=== PATIENT | male | born 1935 | race African-American/Black ===

== ENCOUNTER 2019-04-03 20:28 | Inpatient (IN) | payer OTHER ==
[~2019-04-03] VITALS: Ht 165.1 cm; Wt 68.0 kg
[2019-04-03 20:33] VITALS: BP 95/61
[2019-04-03 20:59] LABS: BASOPHILS 0.7 % (0.0-2.0); EOSINOPHILS 0.4 % (0.0-3.0); HEMATOCRIT 38.5 % (42.0-52.0); HEMOGLOBIN 13.1 gm/dL (14.0-18.0); MCH 35.1 pg (26.0-34.0); MCHC 33.9 g/dL (28.0-37.0); MCV 103.6 fL (80.0-100.0); PLATELET COUNT 195 thou/uL (150-400); POLYS 78.9 % (36.0-66.0); RBC 3.72 mil/uL (4.50-6.00); RDW 12.7 % (10.5-14.5); WBC 7.7 thou/uL (4.0-11.0)
[2019-04-03 21:04] LABS: CALCIUM 8.9 mg/dL (8.5-10.1); POTASSIUM 3.9 mmol/L (3.5-5.1)
[2019-04-03 21:10] LABS: ALBUMIN 3.3 g/dL (3.4-5.0); TOTAL BILIRUBIN 0.3 mg/dL (<0.1-1.0); TOTAL PROTEIN 6.1 g/dL (6.4-8.2)
[2019-04-03 21:36] LABS: URINE BILIRUBIN NEGATIVE (Negative); URINE BLOOD NEGATIVE (Negative); URINE CLARITY CLEAR; URINE COLOR YELLOW; URINE GLUCOSE-RANDOM* NEGATIVE (Negative); URINE KETONES NEGATIVE (Negative); URINE LEUKOCYTES-REFLEX NEGATIVE (Negative); URINE NITRITE-REFLEX NEGATIVE (Negative); URINE PROTEIN (DIPSTICK) NEGATIVE (Negative); URINE SPECIFIC GRAVITY 1.015 (1.005-1.035); URINE UROBILINOGEN 0.2 E.U./dl (0.2-1.0)
[2019-04-03] MEDS ORDERED: ASA81BEC PO (22:48)
[2019-04-03] MEDS ORDERED: LIPITOR40 MG PO (22:49)
[2019-04-03] MEDS ORDERED: MELATONIN3 M1 PO (22:50)
[2019-04-03] MEDS ORDERED: LISINOPRIL2.5 MG PO (22:50)
[2019-04-03] MEDS ORDERED: OLANZAPINE5 M1 PO (22:51)
[2019-04-03] MEDS ORDERED: OLANZAPINE ODT5 MG PO (22:52)
[2019-04-03] MEDS ORDERED: PROTONIX40 M2 PO (22:52)
[2019-04-03] MEDS ORDERED: VALPROIC ACID250 MG PO (22:53)
[2019-04-03 23:22] VITALS: BP 99/60
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
[2019-04-04 09:02] VITALS: BP 132/74
[2019-04-04 10:11] VITALS: BP 132/74
[2019-04-04 19:17] VITALS: BP 105/57
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
[2019-04-05 00:05] LABS: GLYCOHEMOGLOBIN (HGB A1C) 5.2 % (4.8-5.6)
[2019-04-05 00:31] VITALS: BP 105/57
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
--- NOTE | 2019-04-05 08:00 | NUR ---
SW student completed the intake with assistance with translation from community midwife. Pt has a son Wali who has not returned our several attempts to contact him. Pt lives at [facility]. It is expected he will return there. Pt is on a 96 hour hold because DPOA has not available.
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
[2019-04-05 08:54] VITALS: BP 129/52
--- NOTE | 2019-04-05 13:56 | NUR ---
LATE NOTE FROM YESTERDAY: 04-04-2019 THE PATIENT IS ALERT AND ORIENTED TO SELF. HE SPEAKS SERBIAN AND DOESNT UNDERSTAND CHINESE. THE PATIENT WAS INTERPRETED BEING CONFUSED AND WOULD EXPRESSED SUBJECTS THAT WAS NOT RELATED TO THE CONVERSATIONS. THE PATIENT WAS WANDERING AROUND THE UNIT GOING INTO OTHER PATIENT'S ROOMS FALLING ASLEEP IN THEIR BEDS. HE WAS HESITATE AND DIFFICULT TO REMOVE OUT OF OTHER PATIENT'S BEDS AND ROOMS. HE WAS TAKEN TO HIS ROOM FOR HIM TO LYE DOWN AND REST BUT HE WOULD NOT STAY IN HIS ROOM. HE IS AMBULATORY AND HAS BATHROOM PRIVILEGES. HE IS INDEPENDENT FOR ADL'S BUT NEEDS ASSIST WHEN HE NEEDS REDIRECTING. HE IS RESTLESS BUT COMPLIANT WITH MEDICATIONS.
--- NOTE | 2019-04-05 16:07 | NUR ---
HAS HAD EPISODES OF MILD AGITATION,IRRITABILITY THROUGHOUT SHIFT-PAPUA [place] SPEAKING SO WILL APPROACH NURSING STATION ANGRY TENSE FACIAL EXPRESSION AND RAISED VOICE WITH VARIOUS CONCERNS AND COMPLAINTS IE UPSET D/T NOT GETTING 3 SUGAR PACKETS FOR COFFEE-LATER IN SHIFT WAS MILDLY AGITATED BECAUSE HE NEEDED MONEY TO PAY FOR HIS COFFEE BUT WAS ABLE TO BE REASSURED AND REDIRECTED EASILY. ORIENTED TO NAME ONLY-BELIEVES HE IS IN "A BIG HOUSE" DENIES SI/SH/HI-WAS SHOWN TO BATHROOM WHEN STATED HE NEEDED TO GO-APPEARS TO BE CONTINENT-FEEDING SELF. GAIT IS STEADY WITHOUT ASSISITVE DEVICES-WILL WANDER IN HALLWAYS BUT NOT OBSERVED ENTERING PEERS ROOMS OR BEING INTRUSIVE-WILL ASK ABOUT LEAVING TO "GET MONEY" BUT HAS NOT BEEN OBSERVED AT EXIT [facility].
--- NOTE | 2019-04-05 16:08 | NUR ---
SMOOTH team followed up with [facility] and spoke with Aury who said pt is not allowed to come back. SMOOTH asked Aury if a 30 day notice was given. She intially said she had, and then said she had not but has sent correspondence to his family. She said she notified [facility] staff that pt will need assistance in finding another place to stay because he cannot come back there. SMOOTH asked if Aury could email her something stating that. She said she would via admissions team. SMOOTH team will continue to follow pt during his stay.
[2019-04-05 20:05] VITALS: BP 100/52
--- NOTE | 2019-04-05 23:31 | NUR ---
Care assumed of patient at 1915: Patient alert and oriented to person only. Patient confused and forgetful. Patient nauruan speaking. Able to communicate with nurse with nauruan known. Patient denies pain or discomfort. Patient impulsive and wandering/pacing. Patient requiring re-direction on staying out of other patient rooms. Patient trying to open doors that are locked. Becomes agitated and irritable while being re-directed. Patient incontinent of bladder. Compliant with susan care and linen change. Patient pushing around furniture and attempting to lay down table and chairs. Frequent re-direction required for safety. Patient denies SI/HI/AH/VH. No s/s of delusional or paranoia behaviors. Patient received PRN Thorazine and Olanzapine at bedtime for agitation and insomnia. Patient took HS medication crushed without difficulty. Ate 50% HS snack. Patient recently retired to bed and is currently resting quietly.
[2019-04-06 09:21] VITALS: BP 100/52
[2019-04-06 11:39] VITALS: BP 120/73
--- NOTE | 2019-04-06 14:00 | NUR ---
THE PATIENT HAS BEEN WANDERING AROUND THE [place] MOST OF THE MORNING GOING IN AND OUT OF PATIENT'S ROOMS, GOING INTO CAABINETS TAKING OUT ITEMS. THE PATIENT WAS REDIRECTED SEVERAL TIMES BUT NO AVIAL. THE PATIENT SPEAKS ONLY SENEGALESE. WHEN HE HAD TAKEN A HAZARDOUS IRON MINER BLASTING OUT OF A CABINET HE WOULD NOT GIVE IT TO STAFF. THE PATIENT BECAME COMBATIVE WHEN STAFF TRIED TO GET THE ITEM FROM HIM. HE BECAME DIFFICULT TO TO MANAGE. HE WAS ADMINISTERED ATIVAN 1.5 MG IM. HE HAS BEEN RESTING IN A CHAIR QUIET AND CALM. THE PATIENT HAS BATHROOM PRIVILEGES AND HE IS AMBULATORY. THE MACHINE LAY OUT WORKER EXPRESSED THAT HE IS VERY CONFUSED. HE HAS BEEN PUTTING WASH CLOTHS INSIDE HIS YELLOEW SOCKS AND OTHER CLOTHES IN HIS PANTS.
[2019-04-06 19:36] VITALS: BP 111/65
[2019-04-06 23:02] VITALS: BP 120/73
--- NOTE | 2019-04-07 03:01 | NUR ---
PT RESTLESS,PACING THE HALLS. UNABLE TO SIT STILL. DIFFICULT TO REDIRECT DUE TO LANGUAGE BARRIER. SPEAKS ONLY DANISH. INCREASINGLY IRRITABLE,AND REFUSING TO REMAIN IN BED. UNSTEADY ON FEET AND A FALL RISK. BECOMING COMBATIVE. GEODON 15MG IM TO LEFT BUTTOCK AT 0030. PT REMAINED RESTLESS AND INCONTINENT. FINALLY ABOUT 0200, PT SETTLED AND IS CURRENTLY RESTING QUIETLY. TOOK HS MEDS WITH PUDDING.
[2019-04-07 08:56] VITALS: BP 138/73
--- NOTE | 2019-04-07 12:04 | NUR ---
Called [facility] both yesterday and today. Left a detailed message for Aury, their social contact worker and never recieved a call back as of 1200 today. Called again today at 1200 and left a VM. Concern is that the facility is not going to be willing to accept patient back. Waiting to hear back from the facility
--- NOTE | 2019-04-07 15:04 | NUR ---
Slick has been upset today, he has been wanting to leave and trying all the doors to see if they are locked. He has a fast gait and walks slightly hunched over. He has tried to enter the nursing station a few times. Slick became angry when he was denied access to the nursing station. He threw a cup of gramham crackers and ice at the door of the nursing station.
--- NOTE | 2019-04-07 17:36 | NUR ---
THIS AM APON ASSESSMENT WAS COOPERATIVE- TOOK MEDS - OBSERVED PACING IN HALLWAYS. BECAME MORE INTRUSIVE WITH YELLING THROUGH OUT THE MORNING- STATES " I NEED A BARRAGAN TO THESE DOORS" VERBALIZED IN CAMBODIAN TO RN- RN SPOKE CAMBODIAN AND ORIENTED HIM TO PLACE. REDERECTED MULTIPLE TIMES TO DECREASE AGITATION - CONTINUED TO WANDER AND YELL- GEODON 15MG GIVEN IM AT 1349- AT 1530 STARTED YELLING AND BECOME AGITATED AFTER BEING ASKED TO NOT YELL- SLAMMED CUP WITH BALTA CRACKERS AND MILK TO FLOOR WHILE YELLING AND WALKED AWAY. ATIVAN 1.5 MG GIVEN IM PER MD ORDER. COOPERATIVE WITH ALLOWING IMS TO BE ADMINISTERED. APEARS TO BE RESTING QUIETLY IN ROOM AT THIS TIME.
[2019-04-07 19:56] VITALS: BP 136/70
--- NOTE | 2019-04-07 21:37 | NUR ---
Care assumed of patient at 1915: Patient pacing the halls at start of shift. Patient disoriented, confused, exit seeking. Patient attempting to crawl on the floors. Going through belongings in other peer rooms. Requiring constant re-direction. Patient provided HS medication whole with water without difficulty. Nurse administered Geodon IM PRN. Patient assisted to the bathroom and was not able urinate on the toilet. Patient attempted to play in the toilet water, required re-direction. Due to increased confusion and impulsive behaviors, patient required mod-max assist x2 for ADL completion. Patient continued to be restless, agitated, disrupting mileau. Yelling, attempting to move and carry furniture. Tesha, FLASH WELDING MACHINE OPERATOR notified of all medications administered over the last 24 hours and current behaviors. Order obtained for Ativan 1mg IM 1x dose. Medication administered. Patient was able to be assisted to bed with staff x2. Once in bed, patient had an incontinent episode of bladder. Arpita care provided and linens changed. Patient appears to be resting in bed at this time.
[2019-04-08 08:59] VITALS: BP 136/70
--- NOTE | 2019-04-08 09:21 | NUR ---
ASSUMED CARE AT 0700 THIS MORNING. PT. ASLEEP IN W/C AFTER BEING COMBATIVE WITH BROADCAST ENGINEER. HE RECEIVED AN IM OF HALDOL AND ATIVAN. HE WAS COOPERATIVE WITH TAKING MORNING MEDICATIONS, CRUSHED AND IN APPLESAUCE. HE ATE ABOUT 30% BREAKFAST BEFORE HE REUSED TO COOPERATE ANY LONGER WITH EATING. AT ABOUT 0900 WHEN HE STARTED WAKING UP, SLIDING OUT OF THE W/C. STAFF PLACED HIM BACK IN HIS W/C AND TOOK HIM TO HIS ROOM AND INTO BED. DR. ELIAS SAW PT. LUNGS CTA.
--- NOTE | 2019-04-08 11:43 | NUR ---
Spoke to RUTHY Magallon at [facility] - they know that they need to take the patient back and they will. Kimberly asked that our SW call their social service agency director with any outpatient reccomendations for a psychiatrist. Kimberly asked that if their social service agency director did not return call, to please call her at [phone]
--- NOTE | 2019-04-08 15:54 | NUR ---
SMOOTH received information that [facility] will be accepting pt back when he is ready for discharge. However, they need help with locating outpatient psych services for him. SMOOTH contacted [facility] and was told the lady who schedules adult psych appts is out for the day, however, she will call SW Thursday to schedule an appt. SMOOTH contacted [facility] and spoke to admissions who said they were unaware that pt was coming back. SMOOTH explained that her director spoke to Rajani, which admissions identified as the secondary social studies teacher, and she said he will be coming back. She provided updates to them about his psych appt and that she will be calling Thursday with an appt time and possibly a discharge date. SW team will continue to follow pt during his stay.
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
[2019-04-09 07:15] VITALS: BP 148/72
--- NOTE | 2019-04-09 12:40 | NUR ---
Has been up in recliner in the dayroom, where he can be monitored easier, he has dozed off and on, very restless, repositioned several times, he ate a small amount of breakfast with assist, he was not compliant with medications, he spit them all out, he has slept in the recliner and would not arouse for lunch, he mumbles and has struk out at times, will continue to monitor for behaviors and safety, spoke with Dr. Flor about depakote sprinkles instead of large tabs that do not crush well, orders changed.
--- NOTE | 2019-04-09 18:26 | NUR ---
PATIENT WOKE UP FOR SUPPER, TOOK A FEW BITES OF MEAL, AND STARTED SPITTING IT OUT AND THROWING THEM AT STAFF. HAD HALFCUP OF ICECREAM AND ONE APPLE SOURCE. PATIENT IS RESTLESS IN RECLINER. NO AGITATION OR AGGRESSIVE BEHAVIOR NOTED AT THIS TIME, WILL MONITOR FOR SAFETY.
[2019-04-09 19:53] VITALS: BP 99/67
[2019-04-09 21:53] VITALS: BP 99/67
--- NOTE | 2019-04-10 03:03 | NUR ---
PT RESTLESS. UP IN RECLINER BUT MOVING CONSTANTLY. MEDICATED WITH ZIPRASIDON 15MG IM AT 1930. ESCORTED TO BED, BUT REMAINED RESTLESS UNTIL ABOUT 2099. TOOK HS MEDS WITH APPLESAUCE. HAS BED SLEEPING WELL THROUGH THE NIGHT TO THISS POINT.
[2019-04-10 07:34] VITALS: BP 143/61
[2019-04-10 09:23] VITALS: BP 143/61
--- NOTE | 2019-04-10 09:33 | NUR ---
0655 Report received from overnight shift, patient did not eat much breakfast. Patient was sleepy during breakfast, patient took medication without incdence. Patient started yelling words we cannot understand, he was removed from the day room. Patient in fair near nurses station for ovbervation.
[2019-04-10 19:36] VITALS: BP 122/76
--- NOTE | 2019-04-10 23:14 | NUR ---
Care assumed of patient at 1915: Patient seated in recliner at start of shift. Patient compliant with nursing assessment. Denies pain or discomfort. Patient noted to become restless, attempting to lower self to floor to crawl. Staff noted patient had been incontinent of bladder. Patient escorted to his room by ambulating with max staff assist x2. Patient did attempt to hit, kick and bite staff while susan care was provided and brief changed. Patient then assisted to w/c with chair alarm and lap thaddeus for safety. Patient did attempt to slide himself out of w/c x2 but was assist to sitting back with max assist x2. Patient combative while re-positioning but was able to calm down when staff were not assisting him. Patient took HS medication crushed without difficulty. Patient ate approximately 10% HS snack with total assist then started to scream "no more". Patient started to appear tired and drowsy later in the evening. Patient assisted to bed with max assist x2. Patient was not combative while being transferred to bed and fell asleep without difficulty. Patient has been resting quietly since assisted to bed.
[2019-04-11 07:48] VITALS: BP 137/72
[2019-04-11 09:05] VITALS: BP 137/72
--- NOTE | 2019-04-11 10:01 | NUR ---
0700: report given and assumed care. Pt relaxed at the activity room and kinder sleepy. Breakfast served and consumed 95% though he never opened his eyes at all, but responds to questions.. Looks lathergic. Took medications this morning. Pt resting/sleeping at the activity room. Will continue to monitor.
--- NOTE | 2019-04-11 11:07 | NUR ---
SMOOTH contacted [facility] [place] to provide updates to their RUTHY Longoria about pt. She was unavailable. SMOOTH sent updates to their fax [phone]. SW team will continue to follow pt during his stay.
--- NOTE | 2019-04-11 15:23 | NUR ---
Awake and alert. Sitting on bed without s/o distress. States pain in knees/back 3-4. Ambulates with walker, steady gait. Breath sounds clear t/o, bilaterally equal. Color pink with brisk capillary refill and palpable peripheral pulses 2/4. Edema in l lower leg improved from 2 days ago.
--- NOTE | 2019-04-12 04:06 | NUR ---
1909-Report received from day shift and care assumed. Slick was restless, agitated at shift start, trying to get out of the wheelchair and walk on his own, which he cannot do without assist. He continued doing so which was unsafe behavior. He was non-redirectable for other activities to occupy his restlessness. He was given Geodon 15 mg. IM at 1929. He refused his HS medicines shouting and shaking his head No and refused an HS snack.At 2199 he remained very restless trying to get out of the wheelchair on his own, so the was called and an order for Ativan 1 mg. IM was given. He calmed some and was not aggressive with cares and redirections, thus it was effective, even though he remained awake for most of the night.
[2019-04-12 09:56] VITALS: BP 153/90
[2019-04-12 09:57] VITALS: BP 153/90
--- NOTE | 2019-04-12 12:11 | NUR ---
SMOOTH contacted Jessica with [facility]. She did not receive an answer. SMOOTH left a message. for her. SMOOTH again contacted Jessica. No answer. SMOOTH asked the switchboard receptionist if Jessica was in, and she said she is in meetings this morning. SMOOTH asked to speak with Swati. She was transferred to her line, and then the line went . SMOOTH called back to [facility] of main number, and was told Swati was not in for the day. The switchboard receptionist said that she will write down the message for Aury and ask her to call SMOOTH. SMOOTH team will continue to follow pt during his stay.
--- NOTE | 2019-04-12 16:05 | NUR ---
IN RECLINER IN DAYROOM WITH PEERS UPON INITIAL ASSESSMENT THIS AM-APPEARS SLIGHTLY DROWSY INITALLY BUT IS ROUSABLE TO VERBAL STIMULI AND FEEDS SELF BREAKFAST WITH ONLY SET UP REQUIRED. AT APPROX. RESTLESS AND ATTEMPTING TO STAND UP ON OWN OR YELLING OUT "POPPY-POPPY" -REPOSITIONED FOR COMFORT-TOILETED,FOOD AND FLUIDS OFFERED WITH CONTINUED RESTLESSNESS AND INCREASED AGITATION-BEGAN REMOVING CLOTHING AND STRIKING OUT AT STAFF WHEN ATTEMPTS MADE TO REDRESS HIM-INCREASE IN YELLING-TAKEN TO ROOM AND RN AT BEDSIDE UNTIL APPROX. 1215 WHEN GEODON 15MG GIVEN IM IN LVG. REMAINED RESTLESS,DISROBING AND YELLING UNTIL APPROX 1300 WHEN PLACED IN BED BY 2 STAFF-INCONTINENT OF URINE-BRIEF CHANGED AND PERINEAL CARE PROVIDED
--- NOTE | 2019-04-12 16:24 | NUR ---
SMOOTH received a call from Jessica with [facility]. She stated that the facility can take pt back on Sunday 04/15. 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 SMOOTH team will continue to follow pt during his stay.
[2019-04-12 20:38] VITALS: BP 118/70
--- NOTE | 2019-04-13 01:08 | NUR ---
ASSESSMENT: PT REMAIN ALERT AND ORIENT TIMES ONE. KOREAN SPEAKING ONLY, DOES RESPOND TO NAME BUT DOES NOT SEEM TO FOLLOW SIMPLE COMMANDS. WAS SITTING IN THE DAYROOM AT THE CHANGE OF SHIFT UNTIL 0030 WHEN HE WAS PUT IN BED. PT DID TAKE ALL OF HS MEDS WITHOUT DIFFICULTY. INCONTINENT TO BLADDER WHILE SITTING IN THE RECLINER IN THE DAY ROOM. DID NOT APPEAR TO BE IN PAIN. NO PRN GEODON WAS GIVEN. VSS, AFEBRILE. TOLERATING PO INTAKE. SLOW PROGRESS TOWARDS DC GOALS, WILL CONTINUE TO MONITOR.
[2019-04-13 07:55] VITALS: BP 134/57
--- NOTE | 2019-04-13 11:01 | NUR ---
Nutrition: Pt admitted to [facility] unit with dementia, behaviorial disturbances. Seen due to LOS. Chart reviewed. Pt sami speaking. Attempted interview with RN Rafaela (sami speaking) however pt was not able to provide information requested. No weight taken since admit, RD has requested RN to obtain. Meal documentation over admit refusal to 100% however past 24 hrs pt eating 75-100% of all meals. BMI 25, high end normal. Offer ensure once daily due to prior inadequate meal intakes. Planned D/C 04/15. Consider low nutrition risk.
--- NOTE | 2019-04-13 11:45 | NUR ---
SMOOTH contacted [facility] and was told since pt has not had services there yet, he will need to walk into behavioral health department to do an intake. M-F [phone]. SMOOTH relayed this information to Aury with [facility] [place]. She said she will check and make sure transportation has been set up for pt @9am on 04/15. SMOOTH team will continue to follow pt during his stay.
--- NOTE | 2019-04-13 12:02 | NUR ---
SW attempted to notify DPOA of pt discharging. Phone number is disconnected. SW team will continue to follow pt during his stay.
--- NOTE | 2019-04-13 13:07 | NUR ---
Pt is often fully asleep or yelling out and disrobing in the day room. Pt continues to be limited in participation due to language barrier.
--- NOTE | 2019-04-13 13:59 | NUR ---
SMOOTH completed a EX716-E Level I screening per request from Jessica with [facility] . SMOOTH faxed this document to [facility] along with updates. SW team will continue to follow pt during his stay.
--- NOTE | 2019-04-13 15:23 | NUR ---
ASSUMED CARE OF PT AT APPROX 0700. PT IS ALERT, ORIENTED TO SELF. DENIES PAIN AND SOA. EVEN NON LABORED BREATHING. ASSESSMENT CHARTED. PT APPROPRIATE BEHAVIOR TODA BESIDES REFUSED MEDS AT NOON BUT THEN DID TAKE THEM AFTER. FALL PRECAUTIONS IN PLACE AND LAP NINI IN PLACE WELL TO HELP PREVENT INJUSR AND FALLS. NAD DURING SHIFT. WILL CONTINUE TO MONITOR.
[2019-04-13 19:41] VITALS: BP 107/50
--- NOTE | 2019-04-14 00:39 | NUR ---
ASSUMED CARE @ 19:15 ON 04/13/19, SEATED IN CHAIR WITH LAP NINI IN PLACE TO PREVENT FALLS AND INJURY. COOPERATED WITH ASSESSMENT, WILLINGLY TOOK MEDS CRUSHED IN APPLESAUCE, WITH THIN WATER. BECAME SLEEPY AND ALLOWED SELF TO BE TRANSFERRED TO BED @ 2300. SLEEPING AT THIS TIME. BED IN LOW POSITION, BED ALARM SET, WILL CONTINUE TO MONITOR Q 12 MINUTES FOR PATIENT SAFETY.
[2019-04-14 05:37] VITALS: BP 107/50
[2019-04-14 09:12] VITALS: BP 113/63
[2019-04-14 19:30] VITALS: BP 127/70
[2019-04-14 21:30] VITALS: BP 127/70
--- NOTE | 2019-04-14 23:08 | NUR ---
PATIENT HELPED TO BED AT 2215. PATIENT HAD TAKEN HIS HS MEDS EARLIER IN [facility] WITHOUT INCIDENT. PATIENT WAS UP IN DINING ROOM IN AND LAPBUDDY UNTIL HE WENT TO BED. TOILETED PATIENT AND CHANGED INTO NIGHT CLOTHES. LOTIONED AND MASSAGED PATIENT'S LOWER LEGS AND FEET TILL HE FELL ASLEEP. BED ALARM ON. PATIENT ALARM WENT OFF 10 MINUTES LATER AND PATIENT WAS CRAWLING DOWN FROM BED ON THE FLOOR. I WENT TO GET HELP AND SOME GEODON. PATIENT CONTINUED TO CRAWL DOWN [place]. NO INJURIES. SECURITY CALLED TO HELP GET PATIENT BACK TO BED AND BE ON ALERT WHEN INJECTION GIVEN. GEODON 15MG IM GIVEN IN PATIENT'S RIGHT HIP. PATIENT POSITIONED COMFORTABLY IN BED WITH 3 SIDERAILS UP AND BED ALARM ON AND BED IN LOW POSITION. PATIENT APPEARS TO BE SLEEPING NOW.
[2019-04-15 08:00] VITALS: BP 129/58
[2019-04-15] MEDS ORDERED: DEPAKOTE SPRIN125 MG PO (08:56)
[2019-04-15] MEDS ORDERED: ZYPREXA 5 MG TAB5 M1 PO ×2 (08:56→08:57)
[2019-04-15] MEDS ORDERED: VITAMIN B-12500 MCG PO (08:57)
--- NOTE | 2019-04-15 09:13 | NUR ---
SMOOTH faxed D/C summery/ instructions to [facility] and added this to his packet. Reported to nurse that this was completed.
--- NOTE | 2019-04-15 11:32 | NUR ---
REPORT CALLED TO [facility] AND DC INSTRUCTIONS AND MEDS REVIEWED WITH STAFF AND WITH PATIENT ABLE- RX AND MEDICATIONS DOSING SCHEDULE SENT TO [facility] WITH ALL LABS AND MEDICAL SUMMARIES WELL PT BELONGOMGS. ESCORTED OFF UNIT AT APPROX 0915 WITH TRANSPORT STAFF FROM [facility]. IS ALERT/IN NO APPARENT DISTRESS AT TIME OF DC
--- NOTE | 2019-04-17 10:14 | D ---
[facility] [place] [address] DISCHARGE SUMMARY Name: JAIME GALVIN Room #: 517-A [facility] IN M.R.#: [id number] Admission: 04/03/19 Attend Phys: Stephen Flor DO Discharge: 04/15/19 Date of : 31 Report #: [id number] THIS REPORT FOR: //name// CC: Stephen Flor Ale Prabhakar DATE OF SERVICE: 04/15/2019 INPATIENT PSYCHIATRIC DISCHARGE SUMMARY ATTENDING PHYSICIAN: Stephen Flor DO. ENTRY LEVEL LAB TECHNICIAN AT THE TIME OF DISCHARGE: Antonio Macario MD DISCHARGE DIAGNOSES: 1. 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 2. Other comorbidities include hypertension, gait decline, likely due to #1. DISCHARGE PLAN: Discharged to [facility]. Psychiatric and medical care will be per the receiving facility. DIET: Regular with Ensure Enlive with lunch with supplementation. The patient will need 24-hour memory care at [facility]. DISCHARGE MEDICATIONS: Depakote Sprinkles 500 mg p.o. b.i.d., olanzapine 10 mg p.o. at bedtime, 5 mg p.o. at 1200. Cyanocobalamin 500 mcg p.o. daily for supplementation. Continue aspirin 81 mg p.o. daily for cardioprotection, atorvastatin 40 mg p.o. at bedtime for hyperlipidemia, melatonin 6 mg p.o. at bedtime for sleep and Protonix or pantoprazole 40 mg p.o. daily. Lisinopril was discontinued due to variable intake and concern for acute kidney injury. LABORATORY DATA: This admission, CBC within normal limits except on 04/03/2019 hemoglobin 13.1, hematocrit 38.5, white count 7.7, platelets 195,000. Chemistries, 04/03/2019, were grossly normal except glucose 204, BUN 26, albumin 3.3, total protein 6.1. Toxicology this admission, Depakote level was 78 on 04/13/2019. Urinalysis was negative. REASON FOR ADMISSION: As follows: The patient was sent over from [facility]. She was apparently aggressive towards the staff member. The patient is well known to me from prior admission 3 years ago at [facility]. He has no family support, no significant. HOSPITAL COURSE: The patient was admitted to Geriatric Psychiatry Unit. Depakote was titrated to appreciate blood level as indicated, also olanzapine [address] [address] DISCHARGE SUMMARY Name: JAIME GALVIN Room #: 517-A DIS IN M.R.#: [id number] Admission: 04/03/19 Attend Phys: Stephen Flor, Discharge: 04/15/19 Date of : 31 Report #: [id number] was antipsychotic of choice. I did reach out to [facility] and was able to review some of his past medication trials. Initially, [facility] said they could not take the patient back, but they agreed and thought that it is their work to take care of patients such as this. The patient is grossly disorganized in his speech and speaks Sri Lankan, so largely, indirect interview at discharge. VITAL SIGNS: On the day of discharge, temperature 36.7, pulse 50, respirations 20, BP 129/58, O2 sat 98%. MENTAL STATUS EXAMINATION: This is a well-developed, disheveled male, appearing his stated age. Attention limited. Concentration impaired. Speech increased rate. Thought process, difficult to follow. Some psychomotor agitation. No psychomotor retardation. Memory grossly impaired. Insight impaired. Judgment impaired. Fund of knowledge well below average. PROGNOSIS: For this patient is guarded to poor given his advanced dementia, age, and almost absent family support. <ELECTRONICALLY SIGNED> By: Stephen Flor DO 04/17/19 [id number] Stephen Flor DO /nt
== END 2019-04-15 12:35 | DRG 57 ==
LOC: ER 20:28 → SBH 23:00 → EROBS 23:00 → SBH 23:26
PROVIDERS: Nurse Practitioner; Physician Assistant; ADMIT Psychiatry & Neurology Psychiatry
DX: G30.9 Alzheimer's disease, unspecified (principal); F02.81 Dementia in other diseases classified elsewhere, unspecified severity, with behavioral disturbance; I10 Essential (primary) hypertension; K21.9 Gastro-esophageal reflux disease without esophagitis; E78.5 Hyperlipidemia, unspecified; I95.9 Hypotension, unspecified; Z91.81 History of falling; Z79.82 Long term (current) use of aspirin; Z79.899 Other long term (current) drug therapy; Z90.49 Acquired absence of other specified parts of digestive tract
CPT/HCPCS: 10880

== ENCOUNTER 2019-04-19 11:51 | Inpatient (IN) | payer OTHER ==
[~2019-04-19] VITALS: Ht 147.3 cm; Wt 59.0 kg
[~2019-04-19 11:51] MED LIST: ASA81BEC PO; DEPAKOTE SPRIN125 MG PO; LIPITOR40 MG PO; LISINOPRIL2.5 MG PO; MELATONIN3 M1 PO; OLANZAPINE ODT5 MG PO; OLANZAPINE5 M1 PO; PROTONIX40 M2 PO; VALPROIC ACID250 MG PO; VITAMIN B-12500 MCG PO; ZYPREXA 5 MG TAB5 M1 PO
[2019-04-19 11:52] VITALS: BP 119/68
[2019-04-19 12:12] LABS: ABSOLUTE NEUTROPHILS 10.8 thou/uL (1.4-8.2); BASOPHILS 0.2 % (0.0-2.0); EOSINOPHILS 0.1 % (0.0-3.0); HEMATOCRIT 45.4 % (42.0-52.0); HEMOGLOBIN 14.8 gm/dL (14.0-18.0); LYMPHOCYTES 5.2 % (24.0-44.0); MCHC 32.6 g/dL (28.0-37.0); MCV 104.3 fL (80.0-100.0); POLYS 88.5 % (36.0-66.0); RBC 4.35 mil/uL (4.50-6.00); RDW 12.9 % (10.5-14.5); WBC 12.2 thou/uL (4.0-11.0)
[2019-04-19 12:22] LABS: URINE BILIRUBIN NEGATIVE (Negative); URINE BLOOD NEGATIVE (Negative); URINE CLARITY CLEAR; URINE COLOR YELLOW; URINE GLUCOSE-RANDOM* NEGATIVE (Negative); URINE KETONES NEGATIVE (Negative); URINE LEUKOCYTES-REFLEX NEGATIVE (Negative); URINE NITRITE-REFLEX NEGATIVE (Negative); URINE PROTEIN (DIPSTICK) NEGATIVE (Negative); URINE SPECIFIC GRAVITY 1.015 (1.005-1.035); URINE UROBILINOGEN 0.2 E.U./dl (0.2-1.0)
[2019-04-19 12:25] LABS: CALCIUM 9.6 mg/dL (8.5-10.1); CREATININE 4.8 mg/dL (0.7-1.3); POTASSIUM 4.7 mmol/L (3.5-5.1)
[2019-04-19] MEDS ORDERED: ZESTRIL10 MG PO (12:30)
[2019-04-19 12:31] LABS: ALBUMIN 3.3 g/dL (3.4-5.0); TOTAL BILIRUBIN 0.8 mg/dL (<0.1-1.0); TOTAL PROTEIN 6.9 g/dL (6.4-8.2)
[2019-04-19] MEDS ORDERED: OLANZAPINE2.5 MG PO (12:31)
[2019-04-19] MEDS ORDERED: VALPROIC ACID250 MG PO (12:33)
[2019-04-19 13:22] LABS: LARGE PLATELETS RARE; PLATELET COUNT 180 thou/uL (150-400)
[2019-04-19 13:45] VITALS: BP 123/49
--- NOTE | 2019-04-19 13:52 | NUR ---
ATTEMPTED TO CALL SON. PHONE NUMBER ON FILE NOT WORKING
[2019-04-19 16:44] VITALS: BP 126/66
--- NOTE | 2019-04-19 19:25 | NUR ---
REceived pt from the ER, pt is lethargic and only alert to self. Only speaks nigerien and wound respond to his name. Refused to eat but did have half a cup of coffee with sugar. Does not resond to the wire rope sling maker line but would respond when spoken to in Welsh. Plan is for rehydration, informed Dr. hartmann of the medication in the med req, DR wants to hold off though orders for prn ativan in the system if needed. POC followed, no signs o0r verbalizations of distres have been noted. Endorsed to the night nurse.
--- NOTE | 2019-04-20 05:24 | NUR ---
Pt. had two doses of ivp ativan (see emar) for agitation. He has been observed smearing in his feces. When attempting to clean him up he would strike out at the staff and also kick. Pt. is confused and unable to use gem setter. He was also having urinary retention and Ellie STYLES called and notified with orders to insert grayson catheter. Pt. also very figidty and will not leave his gown on. Pt. also kicking his legs up over the siderails a few times during the shift. Ativan effective and he has been resting. Bed alarm is on.
[2019-04-20 05:28] LABS: MCH 35.5 pg (26.0-34.0); MCHC 33.3 g/dL (28.0-37.0); MCV 106.8 fL (80.0-100.0); RBC 3.65 mil/uL (4.50-6.00); RDW 13.3 % (10.5-14.5); WBC 9.5 thou/uL (4.0-11.0)
[2019-04-20 05:39] LABS: ALBUMIN 2.8 g/dL (3.4-5.0); CALCIUM 8.5 mg/dL (8.5-10.1); CREATININE 4.5 mg/dL (0.7-1.3); PHOSPHORUS 5.6 mg/dL (2.5-4.9); POTASSIUM 4.3 mmol/L (3.5-5.1)
[2019-04-20 07:55] VITALS: BP 125/54
[2019-04-20 11:39] LABS: URINE BILIRUBIN NEGATIVE (Negative); URINE BLOOD 2+ (Negative); URINE CLARITY CLEAR; URINE COLOR YELLOW; URINE GLUCOSE-RANDOM* NEGATIVE (Negative); URINE KETONES TRACE (Negative); URINE LEUKOCYTES 1+ (Negative); URINE NITRITE NEGATIVE (Negative); URINE PROTEIN (DIPSTICK) NEGATIVE (Negative); URINE SPECIFIC GRAVITY 1.015 (1.005-1.035); URINE UROBILINOGEN 0.2 E.U./dl (0.2-1.0)
[2019-04-20 11:57] LABS: BACTERIA 1-9 Few /HPF (None Seen); CASTS None Seen /LPF (None Seen); CRYSTALS None Seen /LPF (None Seen); SQUAMOUS None Seen /LPF (0-3); URINE RBC 0-2 Rare /HPF (0-2); URINE WBC 0-5 Rare /HPF (0-5)
--- NOTE | 2019-04-20 14:14 | NUR ---
Case opened to follow for dc planning. Pt is a ltc resident at [facility]. He is a readmission and was dc'd back to the [facility] on [facility]19 from [facility]. Pt was sent back to the hospital d/t aggressive behavior toward another resident;however he was admitted to medical floor due to ROSALINE, metabolic enceph r/t medications, and elev wbc. The pt has a hx of dementia and has only been at [facility] since January of this year (from [facility] The faclity staff report they have issued an Immediate DC notice and can not accept the pt for readmission. They have not been able to reach his son and only known contact Wali for a number of weeks. Both nursing and cm have attempted to contact Wali at [phone] and the number appears disconnected. Dir of CM notified of the facility refusal to accept the pt for readmission. They are having their socialworker send referrals to [facility] and [facility] for possible placement. Dc timeframe is uncertain. The pt is restless and confused at this time. Will ask for therapy evals and await the care team recommendations. Psych consult pending.
[2019-04-20 15:43] VITALS: BP 153/63
[2019-04-20 19:46] VITALS: BP 152/59
--- NOTE | 2019-04-20 19:52 | NUR ---
Assumed of care this am, pt is still very confused, would try to pull his grayson out and IV. Re-enforced tubings with coban. Pt refused to eat or drink. Pericare given twice, had a bm and would be caught fiddling with this if not caught early. Pt does not keep his gown or blankets on. Seen by Dr. Ortiz as well. UA send to the lab. POC followed, endorsed to the night nurse.
[2019-04-21 05:30] LABS: ALBUMIN 2.5 g/dL (3.4-5.0); CALCIUM 8.3 mg/dL (8.5-10.1); PHOSPHORUS 2.7 mg/dL (2.5-4.9); POTASSIUM 3.7 mmol/L (3.5-5.1)
[2019-04-21 05:41] LABS: CREATININE 0.8 mg/dL (0.7-1.3)
--- NOTE | 2019-04-21 06:00 | NUR ---
Pt. required a dose of ativan during the shift (see emar). He attempts to strike out at staff during cares. He also has been restless. Ativan was partially effecitve, but takes his gown off. Attempts to pull at his catheter and iv, but has been monitored closely by staff. Bed alarm is on.
[2019-04-21 07:49] VITALS: BP 120/61
[2019-04-21 14:29] VITALS: BP 159/72
--- NOTE | 2019-04-21 15:43 | NUR ---
ASSUMED CARE AROUND 0715. PT AWAKE DISORIENTED X4. FREQUENT VISUAL CHECK RENDERED. PT DOES NOT CHEW VERY WELL NOR PT'S INTERESTED IN EATING AT THIS TIME. DIET CHANGED TO PUREE FOR FEEDING AND BETTER NOURISHMENT. MULLER INTACT DRAINING DARK YELLOW URINE. NO S/S ACUTE DISTRESS NOTED OR REPORTED AT THIS TIME. WILL CONT TO MONITOR FOR ANY CHANGES IN CONDITION.
[2019-04-21 20:10] VITALS: BP 144/79
--- NOTE | 2019-04-22 02:59 | NUR ---
PATIENT AOX1 CONFUSED AND FORGETFUL. PATIENT SPITTED DEPAKOTE SPRINKERS. PATIENT HAD HIGH ANXIETY AND AGITATION. PATIENT WAS GETTING COMBATIVE WITH CARE PRN ATIVAN GIVEN PER DR. GUIDRY. PATIENT HAS A MULLER CATH CARE DONE. PATIENT IS VOIDING LIGHT YELLOW URINE. NO S/S OF PAIN OR DISCOMFORT. PATIENT IN BED ASLEEP AT THIS TIME BREATHING REGULAR AND UNLABOURED.
[2019-04-22 04:22] LABS: ALBUMIN 2.9 g/dL (3.4-5.0); CALCIUM 8.9 mg/dL (8.5-10.1); CREATININE 0.8 mg/dL (0.7-1.3); HEMATOCRIT 40.2 % (42.0-52.0); HEMOGLOBIN 13.5 gm/dL (14.0-18.0); MAGNESIUM 2.1 mg/dL (1.8-2.4); MCH 34.8 pg (26.0-34.0); MCHC 33.6 g/dL (28.0-37.0); MCV 103.7 fL (80.0-100.0); PHOSPHORUS 3.5 mg/dL (2.5-4.9); POTASSIUM 3.6 mmol/L (3.5-5.1); RBC 3.88 mil/uL (4.50-6.00); RDW 12.5 % (10.5-14.5); WBC 6.4 thou/uL (4.0-11.0)
[2019-04-22 09:39] VITALS: BP 140/60
[2019-04-22 11:43] LABS: URINE BILIRUBIN NEGATIVE (Negative); URINE BLOOD TRACE (Negative); URINE CLARITY CLEAR; URINE COLOR YELLOW; URINE GLUCOSE-RANDOM* NEGATIVE (Negative); URINE KETONES NEGATIVE (Negative); URINE LEUKOCYTES-REFLEX TRACE (Negative); URINE NITRITE-REFLEX NEGATIVE (Negative); URINE PROTEIN (DIPSTICK) TRACE (Negative)
[2019-04-22 14:58] VITALS: BP 139/58
--- NOTE | 2019-04-22 17:38 | NUR ---
Assumed pt care this am, very lethargic and confused. Pt still tries to pull on his grayson cat and would remove his clothes. does not respond to any verbal commands or tactile stimuli. Pt does not even want to open his eyes when told or moved. Refuses to eat meals, fluids given through a syringe and would often spit out food and drink. Olanzapine and IM medication given, as per Dr. Daniel this the is medication that is necessary at this point since pt does not eat or drink. PPN started tolerted well. Fleet enema done, medium bm noted. FC patent and draining light yellow urine of 1500 cc for this shift. POC followed, pt would mumber and say bad words in Japanese at times.
[2019-04-22 19:58] VITALS: BP 100/64; BP 11/64
--- NOTE | 2019-04-23 04:22 | NUR ---
ASSUMED CARE AROUND 191. DISORIENTED X 4. RESPONSE TO PAINFUL STIMULI. OPENS EYES SPONTANEOUSLY SOMETIMES. IV REPLACED TO LFA D/T IV LEAKING ON ALLEN. TOLERATED OK. NO S/S ACUTE DISTRESS NOTED OR REPORTED AT THIS TIME. WILL CONT TO MONITOR FOR ANY CHANGES IN CONDITION.
[2019-04-23 04:56] LABS: ALBUMIN 2.8 g/dL (3.4-5.0); CALCIUM 8.7 mg/dL (8.5-10.1); CREATININE 0.7 mg/dL (0.7-1.3); PHOSPHORUS 3.5 mg/dL (2.5-4.9); POTASSIUM 3.7 mmol/L (3.5-5.1)
[2019-04-23 07:58] VITALS: BP 116/55
--- NOTE | 2019-04-23 12:43 | NUR ---
PER NSG, Pt IS NOT APPROPRIATE FOR SKILLED P.T.. Pt IS AT HER BASELINE. WILL D/C P.T.
--- NOTE | 2019-04-23 16:09 | NUR ---
PT ASSESSED AT START OF SHIFT. PT SLEEPING MUCH OF SHIFT WITH OCCASIONAL PERIODS OF RESTLESSLESS AND TRYING TO GET OUT OF BED. SPITS MEDS OR FOOD OUT WHEN GIVEN. ABLE TO GIVE ZYPREXA DOSE IN THE BUCCAL POUCH IT IS TINY DOSE. PT PULLED PIGTAIL OFF OF MULLER AND BALLOON DEFLATED AND HE PULLED OUT THE MULLER CATHETER -NO TRAUMA BALLOON NOT INFLATED. PAGE OUT TO DR. MUNROE TO UPDATE. CONSULT PLACED TO DR. MARK RE RESLUTS OF MRI THIS AM SHOWING COMMUNICATING HYDROCEPHALUS.
[2019-04-23 16:55] VITALS: BP 150/64
[2019-04-23 19:43] VITALS: BP 113/57
[2019-04-24 07:57] VITALS: BP 129/45
--- NOTE | 2019-04-24 08:03 | NUR ---
PROGRESS PT SLEEPING AND NOT RESPONSIVE TO VERBAL STIMULI, BUT DOES REPOSITION SELF AND MOVE AROUND IN BED. PT IS CAMEROONIAN SPEAKING BUT DOESN'T RESPOND TO CAMEROONIAN OR LAO. VSS. DID NOT VOID ALL SHIFT BLADDER SCAN REVEALED 999 ML'S SO MULLER CATHETER HE PULLED OUT ON DAYS REPLACED WITH RETURN OF OVER 1200 CC'S PT WAS LESS RESTLESS AND WENT TO SLEEP AFTER.
[2019-04-24 13:33] LABS: HEMATOCRIT 43.2 % (42.0-52.0); HEMOGLOBIN 14.6 gm/dL (14.0-18.0); MCH 34.5 pg (26.0-34.0); MCHC 33.9 g/dL (28.0-37.0); MCV 101.8 fL (80.0-100.0); RBC 4.24 mil/uL (4.50-6.00); RDW 12.4 % (10.5-14.5); WBC 7.8 thou/uL (4.0-11.0)
[2019-04-24 13:38] LABS: CALCIUM 8.9 mg/dL (8.5-10.1); CREATININE 0.6 mg/dL (0.7-1.3); MAGNESIUM 2.1 mg/dL (1.8-2.4); POTASSIUM 4.5 mmol/L (3.5-5.1)
[2019-04-24 15:26] VITALS: BP 134/83
--- NOTE | 2019-04-24 15:53 | NUR ---
PT A&O TO SELF, VSS, NO APPARENT PAIN. PATIENT RESTLESS AND IN BED AND SWINGS LEGS OVER. ROOM BY NURSING STATION AND PATIENT IS BEING KEPT SAFE. PATIENT CONTINUES TO HAVE POOR APPETITE. NO SIGNS OF DISTRESS, WILL CONTINUE TO MONITOR.
[2019-04-24 19:12] VITALS: BP 101/56
--- NOTE | 2019-04-25 02:49 | NUR ---
ASSUMED CARE AROUND 191. RESTLESS AND DISORIENTED X 4. DOES NOT FOLLOW ANY VERBAL COMMANDS AT THIS TIME. NO S/S ACUTE DISTRESS NOTED OR REPORTED AT THIS TIME. [facility].
[2019-04-25 06:23] LABS: HEMATOCRIT 41.4 % (42.0-52.0); MCH 34.4 pg (26.0-34.0); MCHC 33.7 g/dL (28.0-37.0); RBC 4.06 mil/uL (4.50-6.00); RDW 12.4 % (10.5-14.5); WBC 8.6 thou/uL (4.0-11.0)
[2019-04-25 06:28] LABS: CALCIUM 9.4 mg/dL (8.5-10.1); CREATININE 0.7 mg/dL (0.7-1.3); MAGNESIUM 2.1 mg/dL (1.8-2.4); POTASSIUM 3.9 mmol/L (3.5-5.1)
[2019-04-25 08:00] VITALS: BP 139/68
--- NOTE | 2019-04-25 12:54 | NUR ---
Resumed care at 0700. PT appeared to be resting in bed. PT is nonverbal with non purposeful movements. Nurse attempted to give PO medications crushed with applesauce however PT spit the medications out. PT is unable to follow commands. IV medications were given and PT appeared to tolerate those well. PT is currently resting in bed. Call light within reach. Bed alarm is on. Nurse will continue to monitor.
[2019-04-25 15:00] VITALS: BP 108/69
--- NOTE | 2019-04-25 15:07 | NUR ---
CM ATTEMPTED TO CONTACT PT'S SON AGAIN TWICE TODAY AND THE LISTED NUMBER IS STILL NOT WORKING. CM CALLED [facility] AND REQUESTED THAT THEY CONDUCT A WELLNESS CHECK AT PT'S SON'S ADDRESS [address] [place] [id number]. CM SPOKE WITH SOMEONE NAMED PINA. CM TO CHECK BACK IN AN HOUR. CM TO FOLLOW INDICATED WITH DC PLANNING.
[2019-04-25 19:32] VITALS: BP 108/74
--- NOTE | 2019-04-26 02:35 | NUR ---
PT CARE ASSUMED AT 1900 WITH PT IN BED.PT HAS A SOFT WRIST RESTRAINT.PT IS INCONTINENT TO B/B.PT IS NON COORPERATIVE AND IMPULSIVE.PT HAS A MULLER CATHETER.PT TAKE MEDICATIONS CRUSHED IN APPLE SAUCE.PT IS TO HAVE A LUMBAR PUNCTURE DONE TODAY.PT IS ON PPN AND ACCUCHECKS.PT IS ON PUREE DIET AND A FEEDER.CONTINUE TO MONITOR POC
[2019-04-26 04:16] VITALS: BP 135/60
[2019-04-26 08:06] VITALS: BP 107/72
[2019-04-26 08:35] LABS: HEMATOCRIT 40.4 % (42.0-52.0); HEMOGLOBIN 13.5 gm/dL (14.0-18.0); MCH 34.2 pg (26.0-34.0); MCHC 33.4 g/dL (28.0-37.0); MCV 102.2 fL (80.0-100.0); RBC 3.95 mil/uL (4.50-6.00); RDW 12.2 % (10.5-14.5); WBC 7.2 thou/uL (4.0-11.0)
[2019-04-26 08:53] LABS: INR 1.1; PROTIME 11.1 Seconds (9.3-11.4)
[2019-04-26 10:52] LABS: CSF CLARITY CLEAR; CSF COLOR COLORLESS; VOLUME 28 ml
[2019-04-26 11:04] LABS: CSF GLUCOSE 52 mg/dL (40-70); CSF PROTEIN 49 mg/dL (15-45)
--- NOTE | 2019-04-26 11:23 | NUR ---
Resumed care at 0700. PT was awake and restless in bed. PT keeps kicking his legs and trying to free his hands. Wrists are in bilateral restraints. Skin is warm, dry, and intact. Bilateral radial pulses are 2+. PT attempts to pull out his grayson catheter and peripheral IV. PT was given a fleets enema today per Doctor's orders. PT appeared to tolerate procedure well. PT was taken down for a lumbar puncture with a cart. It was reported to nurse that PT had an unmeasured BM during the procedure. PT returned. No signs of pain. PT was placed supine and restraints were reapplied. Call light is within reach. Bed alarm is on. Nurse will continue to monitor.
[2019-04-26 11:36] LABS: CSF RBC 130 /mm3; CSF WBC 1 /mm3 (0-10)
[2019-04-26 15:41] VITALS: BP 115/59
--- NOTE | 2019-04-26 15:55 | NUR ---
CM CALLED AND ASKED [facility] TO DO WELLNESS CHECK AT PT'S LAST LISTED ADDRESS. CM CALLED [facility] AND THEY INDICATED THEY HAD RECOEVED REFERRAL AND THAT THEY AREN'T ABLE TO ACCEPT PT. CM TO FOLLOW INDICATED WITH DC PLANNING.
[2019-04-26 19:09] LABS: SYPHILIS AB Non Reactive (Non Reactive)
[2019-04-26 19:38] VITALS: BP 126/69
[2019-04-27 08:00] VITALS: BP 117/56
--- NOTE | 2019-04-27 08:38 | NUR ---
progress pt in soft wrist restraints at start of shift slightly restless. safety checks q2 hrs with restraints removed and circulation and skin checks no redness swelling lack of circulation noted. grayson in place draining adequate amount of yellow urine. drank water when offered q2hrs slept on and off but was mostly just awake fidgeting with his blankets. restraints dc'd at 4 am behavior appropriate thus far.
--- NOTE | 2019-04-27 11:39 | NUR ---
Pt's son Wali and Friend Liat here to visit this am. They indicate that they have been looking for the pt at [facility]. They report that a couple of months ago the pt was up ad campbell and active. He walked outside several times a day and was indep with most of his basic adl's. He had supervision and a caregiver at home but was [place] [facility] [place]. Per family, [facility] [place] SNF stay for rehab and the pt has been at [facility] under his medicare skilled benefit since 02/10/19. During this time he was sent to [facility] here for behaviors. The family reports that they do not want him placed in a retirement. They feel his care will be better at home. They report having 24hr supervision and a caregiver, Candie Soto who can stay with him while they are at work. Address and contact info updated. Pt's son and friend can be reached at [phone] with new address of [address], [place] [address]. They are receptive to HH referral at [place] and deny an agency preference. Therapy to reeval. Pt is very awake and sitting eob this am. He responded well to his family. Will need to dc his grayson and see if he can void. Case discussed with the care team. Family updated. Possible dc home with hh later today or tomorrow. DC exercise planner to locate HH provider in [place].
[2019-04-27 11:48] VITALS: BP 117/56
[2019-04-27 15:00] VITALS: BP 123/60
--- NOTE | 2019-04-27 15:31 | PATH ---
[facility] [address] [place] [address] PATHOLOGY RPT PROCEDURE Name: JAIME GALVIN Room #: 461-P ADM IN M.R.#: [id number] Admission: 04/19/19 Date of : 31 Discharge: Report #: [id number] Path Case #: [id number] Note [facility] Accession Number: [id number] TESTS RESULT FLAG UNITS REF RANGE LAB Clinician Provided Cytology Information No. of containers..01 Other (Miscellaneous) Source: CSF DIAGNOSIS: 02 CSF NEGATIVE FOR MALIGNANT CELLS. SCANT CELLULARITY. RARE LYMPHOCYTES IDENTIFIED. NE VIRAL INCLUSIONS OR PARASITIC ORGANISMS PRESENT. Pathologist ICD10: 02 N17.9 Signed out by: Ashley Pitt MD, Pathologist NPI- [id number] Performed by: Cira Medina, Deflector Operator ([facility]) Gross description: 01 7 ML, COLORLESS, CLEAR /LCS 05/24/1840 0000 Local FLAG LEGEND: L-Low Normal,H-High Normal,LL-Alert Low,HH-Alert High <-Panic Low,>-Panic High,A-Abnormal,AA-Critical Abnormal Performed at: [address] [place] [address] Andrew Gibbons MD, [address] [address] Ashley Pitt MD, Specimen Comment: A courtesy copy of this report has been sent to [phone] Specimen Comment: Report sent to Performed at: [address], [place], [place] [id number] MD Andrew Gibbons MD Phone: [phone]
--- NOTE | 2019-04-27 16:36 | NUR ---
Assumed pt care this am, pt is still cofused and would only respond to East Timorese. Pt was able to feed himself with moderate assists. Pt was able to get to the commode with max assists. He is able to follow simple instructions and can be redirected when needed. FC in place draining light yellow urine. Pt worked with PT and OT today and spent the afternoon on his recliner. POC followed, hydration promoted. No signs or verbalizations of distress during this shift. Frequent monitoring done.
[2019-04-27 20:10] VITALS: BP 119/73
[2019-04-28 05:14] LABS: CREATININE 0.8 mg/dL (0.7-1.3); POTASSIUM 4.3 mmol/L (3.5-5.1)
[2019-04-28 05:17] LABS: HEMATOCRIT 39.9 % (42.0-52.0); HEMOGLOBIN 13.8 gm/dL (14.0-18.0); MCH 34.6 pg (26.0-34.0); MCHC 34.5 g/dL (28.0-37.0); MCV 100.2 fL (80.0-100.0); RBC 3.98 mil/uL (4.50-6.00); RDW 12.5 % (10.5-14.5); WBC 7.2 thou/uL (4.0-11.0)
[2019-04-28 07:21] VITALS: BP 124/59
--- NOTE | 2019-04-28 08:15 | NUR ---
PAGED REGARDING IV CLOTTING OFF OK TO DC PT POSSIBLY TO DISCHARGE HOME TODAY
--- NOTE | 2019-04-28 09:40 | NUR ---
PROGRESS PT MORE DIRECTABLE THIS SHIFT CALLING ME MAMA AND HOLDING MY HAND. STILL TRYING TO GET OOB BUT RESTING FOR LONGER PERIODS. INCONTINENT OF URINE X 2 POST BLADDER RESIDUAL 380 ML'S STRAIGHT CATHED X 1 WITH RETURN OF 350 , BLADDER SCAN AFTER SECOND INCONTINENT EPISODE SHOWED 75 ML'S TO CONTINUE TO MONITOR IV DC'D AFTER CLOTTED OFF ORDER TO KEEP OUT OBTAINED PT EATING AND DRINKING ADEQUATELY WITH ASSISTANCE.
--- NOTE | 2019-04-28 12:04 | NUR ---
DISCHARGE PLANNING. ANTICIPATED DISCHARGE TO HOME TODAY WITH FAMILY. HOME HEALTH RECOMMENDED AT DISCHARGE. NURSING, OT, PT, SW. PATIENT REFERRAL FAXED TO [facility] PER REQUEST. CALL PLACED TO NICOLE LEOS LIAISON TO NOTIFY. DERIC TO DO BEDSIDE EVAL WITH PATIENT AND FAMILY TODAY AND WILL NOTIFY RUBINA. DERIC STATES [facility] HAS TWO PHYSICAL THERAPISTS ON STAFF THAT SPEAK ROMANSH TO ASSIST. FOLLOWING.
--- NOTE | 2019-04-28 12:17 | NUR ---
Nutrition: Per EMR, anticipated discharge to home today. Pt has been on PPN since 04/22. Previously on a pureed diet and/or NPO. Regular diet able to be resumed 04/26 and pt has consumed 40-90% of meals since. Per daily nursing note, pt eating and drinking adequately with assistance. Constipation previously noted, with updated BMs 04/26 and 04/28 on lactulose, senna/docusate sodium scheduled plus prn suppository. Note EMR states IV clotted off and was discontinued. Unsure if this IV was referring to PPN site? Will add daily Ensure Enlive for added calorie, protein source as pt will have staff assistance to help encourage/boost intake.
[2019-04-28] MEDS ORDERED: FLOMAX0.4 MG PO (12:44)
[2019-04-28] MEDS ORDERED: FOLIC ACID1 MG PO (12:45)
[2019-04-28] MEDS ORDERED: OLANZAPINE ODT5 MG PO (12:45)
[2019-04-28] MEDS ORDERED: VALPROIC ACID250 MG PO (12:46)
[2019-04-28] MEDS ORDERED: LIPITOR40 MG PO (12:46)
[2019-04-28] MEDS ORDERED: ASA81BEC PO (12:46)
[2019-04-28 13:10] LABS: CSF VDRL Non Reactive (Non Rea:<1:1)
--- NOTE | 2019-04-28 13:55 | NUR ---
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 Wv summary compile.Will review with family at vt. Pt in bed sleeping at present.Will continue to monitor.
[2019-04-28 14:26] VITALS: BP 117/56
[2019-04-28 15:10] VITALS: BP 118/57; BP 135/56
[2019-04-28 19:45] VITALS: BP 107/65
--- NOTE | 2019-04-29 03:36 | NUR ---
ASSUMED CARE OF PT AT 1900HRS. PT IS ALERT AND AGITATED. PT IS DISORIENTED. FALL PRECAUTION IN PLACE. PRN MEDS WERE USED TO CALM PT. PT HAS DC ORDERS BUT FAMILY DID NOT COME FOR DC AT HOME. PPN IS ON HOLD, PLEASE ENCOURAGE PO NUTRITION. PT WAS STRAIGHT CATHED X1 THIS SHIFT WITH 800CC OUTPUT. PT WALKED AROUND THE HALLWAY WITH ASSIST. PT WAS ABLE TO SLEEP PART OF THE SHIFT. VSS AND NO S/S OF ACUTE DISTRESS. WILL CONTINUE TO MONITOR.
[2019-04-29 08:21] VITALS: BP 139/61
[2019-04-29 11:44] VITALS: BP 117/56
--- NOTE | 2019-04-29 13:16 | NUR ---
Assumed pt care this am, pt had NO IV present. Was suppose to DC yesterday but no family appeared and could not be contacted. Pt was able eat on his own with supervision. Pt is able to ambuate with small shuffles and a gait belt. Pt has not had the urge to void and was straign cat yesterday night as per the night nurse. POC followed all medication and diet is well tolerated. No signs or verbalizations of distress have been noted. 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 Jaime cat placed as per Dr. Barlow orders to go home with a FC and to follow up with the urologists. Pt spoke to the CM for instructions for homew health. Pt is now dc.
--- NOTE | 2019-04-29 13:29 | HC ---
[facility] [place] [address] CONSULTATION Name: JAIME GALVIN Room #: 461-P [facility] IN M.R.#: [id number] Admission: 04/19/19 Attend Phys: Stephen Gamboa MD Discharge: 04/29/19 Date of : 31 Report #: [id number] THIS REPORT FOR: //name// CC: Stephen Gamboa Ale Fisehr DATE OF SERVICE: 04/24/2019 HISTORY OF PRESENT ILLNESS: This is an 84-year-old male patient who is unable to provide any history. I talked to the nurses looking after this patient last night. I talked to Dr. Wallace yesterday and today. I reviewed this patient's records. Even long time ago, records indicate that this patient has dementia. It looks like he is in memory units. Some of the records indicate he has advanced dementia, but I cannot quantitate his dementia any further, but looks like it is an advanced dementia. He has been to multiple psychiatric facilities and has been in and out. At one time, it looks like he also had renal failure. That appeared to have decompensated him. I do not know whether he has a prior history of alcohol use or not, but his MCV is high and his platelet is low. REVIEW OF SYSTEMS: A 14-point review of system was attempted from the records because no family member is available. He has a history of renal failure. His GFR has been as low as 15, that has improved, but the patient's mentation has not improved. I do not know how severe his dementia is. He does have behavior disturbances with it and he has an aggressive behavior. I do not know whether he has any ataxia, urinary incontinence to correlate with MRI and CT finding. That is all the 14-point review of system I can get on this patient. PAST MEDICAL HISTORY: Unavailable from him, but records indicate he had multiple psychiatric issues and dementia. FAMILY HISTORY: Unavailable. SOCIAL HISTORY: Also unavailable except he lives in a [facility]. PHYSICAL EXAMINATION: Impossible because he keeps his eyes closed and he does not follow any commands. He does not say a single word. I think he can move both sides when painful stimuli is given, but he does not cooperate with the position sense, tone, meningeal sign, fundus examination, etc. He does not appear to be in any respiratory difficulty. His cardiac examination is unremarkable. Blood pressure is 129/45, respirations 17, pulse is 51, temperature is 97.4. LABORATORY DATA: His MCV is 103.7. Platelet is down mildly. His vitamin B12 is okay and I did not see TSH, but I will order that. IMPRESSION: From all indications, it would appear that this patient has [facility] [address] [place] [address] CONSULTATION Name: JAIME GALVIN Room #: 461-P [facility] IN M.R.#: [id number] Admission: 04/19/19 Attend Phys: Stephen Gamboa MD Discharge: 04/29/19 Date of : 31 Report #: [id number] dementia. That got decompensated with metabolic disturbances and unfortunately the patient with dementia always does not come back to the baseline. 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 It can contribute to the dementia, but even after relieving it, dementia is not treatable, but his is not bad enough to even cause the dementia and the diagnosis of normal pressure hydrocephalus is always subjective. RECOMMENDATIONS: 1. TSH. 2. We need to find some family who can discuss with us how aggressive to be on him. The only other thing which can be done on him is a spinal tap to make sure there is no etiology there and drain some fluid to see if that makes any difference to his symptoms, but we need to discuss that with some family member or some guardian if we can find one. I will get an EEG and TSH to complete the workup. Otherwise, if no family member can be found and if his dementia can be documented to be severe, then I think hospice can be considered. Thank you very much for this referral. <ELECTRONICALLY SIGNED> By: Aj Diego MD 04/29/19 1329 1318 25 Aj Diego MD /nt
--- NOTE | 2019-05-01 08:35 | HC ---
[facility] [place] [address] CONSULTATION Name: JAIME GALVIN Room #: 461-P [facility] IN M.R.#: [id number] Admission: 04/19/19 Attend Phys: Stephen Gamboa MD Discharge: 04/29/19 Date of : 31 Report #: [id number] THIS REPORT FOR: //name// CC: Stephen Gamboa Ale Prabhakar REASON FOR CONSULTATION: Acute kidney injury. REASON FOR PRESENTATION: Abnormal mental status, agitation, violent behavior. HISTORY OF PRESENT ILLNESS: This is obtained from the medical chart as the patient is currently not able to provide me with any history. He is also speaking. He was in the hospital back from 04/03/2019 until 04/15/2019 for what seems to be behavioral changes. He is known to have hypertension and is maintained on an angiotensin-converting enzyme inhibitor. Apparently, he had some aggressive behavior towards the staff members. He is known to have Alzheimer dementia. He was admitted to the Behavioral Unit during that time. He had normal kidney function and was discharged with a creatinine value close to 1.0. The patient was sent to his nursing facility yesterday, was sent to his nursing facility after the dismissal from the Behavioral Unit and continued to have behavioral issues and re-presented yesterday with aggressive behavior toward other residents. Unfortunately, I am not able to obtain any details about his renal function; however, the patient's creatinine on presentation yesterday was 4.8. Nursing relating to me that upon insertion of a Jaime catheter, he had significantly bloody urine and had about 1725 mL of urine, immediately abundance upon inserting the Jaime catheter. I am being consulted to manage his acute kidney injury. PAST MEDICAL HISTORY: 1. Alzheimer dementia. 2. Hypertension. 3. Behavioral issues. 4. GERD. MEDICATIONS: From the nursing facility; 1. Aspirin. 2. Atorvastatin. 3. Lisinopril. 4. Valproic acid. ALLERGIES: None per the medical record. SOCIAL HISTORY: Unknown given the patient's mental status; however, he was brought from nursing facility. REVIEW OF SYSTEMS: Unable to obtain given the patient's current mental status. [facility] [address] [place] [address] CONSULTATION Name: JAIME GALVIN Room #: 461-P [facility] IN M.R.#: [id number] Admission: 04/19/19 Attend Phys: Stephen Gamboa MD Discharge: 04/29/19 Date of : 31 Report #: [id number] FAMILY HISTORY: Unable to obtain given the patient's current mental status. PHYSICAL EXAMINATION: GENERAL: The patient is confused. VITAL SIGNS: Blood pressure this morning was reported to be 126/66. Temperature is 36.8. HEAD AND NECK: Dry mucous membrane. CHEST: No crackles. CARDIOVASCULAR: Regular with no rub. ABDOMEN: Soft, nontender. EXTREMITIES: Lower extremities, no edema. GENITOURINARY: Jaime catheter with yellow urine and no evidence of blood in the Jaime catheter. LABORATORY VALUES: Reviewed. Creatinine is down to 4.5 from 4.8. Sodium is 149. As stated above, he was discharged from our facility on 04/03/2019 was a normal creatinine. IMPRESSION AND PLAN: 1. Acute kidney injury due to obstruction. 2. Behavioral issues and Alzheimer's dementia. 3. History of hypertension. Apparently, the patient was obstructed and this has resolved with the Jaime catheter insertion. About 1700 mL of urine was obtained immediately after insertion of the Jaime catheter. Given his hypernatremia, I will initiate on D5W for now. It is expected that he will run into some postobstructive diuresis. We will continue to watch for now. Continue to hold his blood pressure medication at this point. Continue to address his other comorbid conditions as per the primary team. <ELECTRONICALLY SIGNED> By: Booker Agarwal MD 05/01/19 0835 [id number] Booker Agarwal MD /nt
--- NOTE | 2019-05-03 15:36 | HC ---
[facility] [place] [address] CONSULTATION Name: JAIME GALVIN Room #: 461-P [facility] IN M.R.#: [id number] Admission: 04/19/19 Attend Phys: Stephen Gamboa MD Discharge: 04/29/19 Date of : 33 Report #: [id number] THIS REPORT FOR: //name// CC: Stephen Aguilera [facility] PALLIATIVE CARE CONSULTATION REQUESTING PHYSICIAN: Dr. Wallace. CHIEF COMPLAINT: Delirium. HISTORY OF PRESENT ILLNESS: The patient is an 84-year-old male who presented initially on 04/19/2019 with altered mental status and acute renal failure from his outlying long-term care facility, which was [facility]. Unfortunately, the patient is not able to provide any history. It is known that the patient is , speaking possibly a Azeri speaking only. However, he is significantly delirious at this time. Additionally, we have no known family contacts available. Son was his primary decision maker; however, there is no known contact to which we can reach him. Case management has tried multiple attempts. PAST MEDICAL HISTORY: Dementia, suspected Alzheimer's type; hypertension; gastroesophageal reflux disease. MEDICATIONS: Aspirin, Lipitor, lisinopril, Depakote. ALLERGIES: No known drug allergies. SOCIAL HISTORY: Unable to obtain at this time, was living at long-term care. CODE STATUS: Currently listed as full code. FAMILY HISTORY: Unobtainable at this time. REVIEW OF SYSTEMS: Unable to obtain at this time due to present medical condition. PHYSICAL EXAMINATION: VITAL SIGNS: Temperature 37.2, pulse 89, respirations 17, blood pressure 108/74, 99% on nasal cannula. GENERAL: The patient is not alert, unable to assess orientation. He appears to be in no acute distress but at times he is agitated. HEENT: Unable to assess fully at this time given the patient's overall status. RESPIRATORY: Lungs appear to be clear to auscultation but again agitated during most of my exam. CARDIOVASCULAR: Tachycardic. [facility] [address] [place] [address] CONSULTATION Name: JAIME GALVIN Room #: 461-P [facility] IN M.R.#: [id number] Admission: 04/19/19 Attend Phys: Stephen Gamboa MD Discharge: 04/29/19 Date of : 33 Report #: [id number] EXTREMITIES: Moves all extremities with sufficient strength. No apparent edema noted. LABORATORY DATA: These include hemoglobin 14.0, white blood cell 8.6, creatinine was 0.7, magnesium 2.1. ASSESSMENT AND PLAN: 1. Delirium. Significant at this time and contributing to overall prognosis given that the patient has poor p.o. intake. I have discontinued Ativan given that this can promote delirium and works in his overall condition. Additionally, I have added Haldol despite his risk of QT prolongation especially with his current antipsychotic it is certainly preferable at this time to the Ativan. It is preferable at this time the Ativan due to potential prolongation of delirium. Certainly the delirium may lead to an overall decline in his condition, especially since he has poor p.o. intake. I believe at this time that it may be medically futile given the severity of his previous dementia to treat with PEG tube for more definitive nutritional replacement as these has not been shown to increase life expectancy in patients with severe dementia. If this was agreed upon with primary team, I believe that it would be acceptable not to add a definitive tube feeding and to consider a DNR status which I think is certainly reasonable given his severity of his dementia again. 2. Dementia. Again severe type unknown overall except based on recall from facility, unable to reach family. Certainly, he may benefit significantly from guardianship. However, at this time, I do believe again as stated it could be medically futile to use a PEG tube feeding given the evidence that shows that it will not improve life expectancy and certainly does not improve quality of life. I certainly think DNR status would be appropriate as well. 3. Acute kidney injury. This appears to be improved overall. We will defer to his primary team with regards to this. I believe this patient will likely benefit from hospice care if this is felt to be appropriate per primary team at his facility. If he does have recovery certainly a nursing home could be transitioned to at that time. However, again the severity of his dementia may overall influence as towards that direction. Certainly, I believe DNR status and no tube feeding is appropriate prior to any additional transfer. Thank you very much for this consultation. <ELECTRONICALLY SIGNED> By: Gulshan Bhat DO 05/03/19 1536 [id number] Gulshan Bhat DO /nt
--- NOTE | 2019-05-04 15:47 | NUR ---
Call rec'd from [facility] director social service Jessica at [phone] requesting any contact number for the pt's son Wali. The number they have is the old one. Updated contact number and address given. Jessica reports that Wali is the DPOA for health care and they have a document on file there from 2015. [facility] indicates that they were not able to see the pt prior to his readmission to the hosptial. They had attempted to call the son also to setup an initial visit. [facility] liason to check in with [facility] as they are able to accept him for hh services at [place]. Jessica reported the pt was admitted with chest pain and is stable for dc home once they reach the family.
--- NOTE | 2019-05-06 17:03 | NUR ---
Message rec'd from [facility] that [facility] canceled his hh referral and let them know they had found placement for him.
== END 2019-04-29 13:25 | disposition home health service (06) | DRG 682 ==
LOC: ER 11:51 → 4W 13:44 → EROBS 13:44 → 4W 16:43 → ENTRNSPT 04-29 12:43 → EDTRNSPTSTS 04-29 13:01 → 4W 04-29 13:25
PROVIDERS: Hospitalist; Internal Medicine; Internal Medicine Nephrology; Physician Assistant; Psychiatry & Neurology Neurology; Psychiatry & Neurology Neuromuscular Medicine; ADMIT Hospitalist
PROC: 009U3ZX Drainage of Spinal Canal, Percutaneous Approach, Diagnostic (ICD-10-PCS; principal; 2019-04-26)
PROC: B01B1ZZ Fluoroscopy of Spinal Cord using Low Osmolar Contrast (ICD-10-PCS; principal; 2019-04-26)
DX: N17.0 Acute kidney failure with tubular necrosis (principal); G92 Toxic encephalopathy; F02.81 Dementia in other diseases classified elsewhere, unspecified severity, with behavioral disturbance; G91.0 Communicating hydrocephalus; F05 Delirium due to known physiological condition; E87.0 Hyperosmolality and hypernatremia; N39.0 Urinary tract infection, site not specified; E44.0 Moderate protein-calorie malnutrition; N13.8 Other obstructive and reflux uropathy; N40.1 Benign prostatic hyperplasia with lower urinary tract symptoms; K21.9 Gastro-esophageal reflux disease without esophagitis; G30.9 Alzheimer's disease, unspecified; E78.5 Hyperlipidemia, unspecified; R53.81 Other malaise; D53.9 Nutritional anemia, unspecified; K59.00 Constipation, unspecified; I10 Essential (primary) hypertension; Z79.899 Other long term (current) drug therapy; Z79.82 Long term (current) use of aspirin; Z90.49 Acquired absence of other specified parts of digestive tract; Z74.01 Bed confinement status; Z68.27 Body mass index [BMI] 27.0-27.9, adult
CPT/HCPCS: 10040